=== PATIENT | male | born 1965 | race Caucasian/White ===

== ENCOUNTER → 2019-01-18 08:29 | Outpatient (CLI) | payer BC, SELFPAY ==
--- NOTE | 2019-01-18 10:46 | CA_ITS ---
APPROVED REPORT Community Planning Technician: Dee Dee Reid RVT Laterality: Bilateral Study Quality: Good Indications: TIA Risk Factors Hypertension: Hyperlipidemia Smoking Doppler Spectral Velocity Analysis ECA (R) 67.20/14.10 cm/s ECA (L) 78.10/19.80 cm/s dICA (R) 49.50/17.70 cm/s dICA (L) 59.50/26.00 cm/s Krista (R) 52.40/20.10 cm/s Krista (L) 66.90/27.10 cm/s pICA (R) 54.30/18.60 cm/s pICA (L) 62.00/23.40 cm/s dCCA (R) 73.80/21.80 cm/s dCCA (L) 72.70/21.40 cm/s pCCA (R) 71.90/12.80 cm/s pCCA (L) 82.90/21.90 cm/s Vert (R) 22.00/3.50 cm/s Vert (L) 46.60/13.00 cm/s ICA/CCA 0.74 ICA/CCA 0.92 Conclusion Study suggests less than 20% stenosis of the bilateral internal cartoid arteries. Antegrade flow seen bilateral vertebral arteries. Electronically signed by : Hector Valladares MD 01/24/2019 14:10:51
== END ==
PROVIDERS: PCP Family Medicine; Visit Provider Family Medicine
DX: G45.9 Transient cerebral ischemic attack, unspecified (principal); I10 Essential (primary) hypertension
CPT/HCPCS: 93880

== ENCOUNTER → 2019-02-12 13:27 | Outpatient (CLI) | payer BC, SELFPAY ==
--- NOTE | 2019-02-12 13:31 | CT_ITS ---
PROCEDURE: CT HEAD/BRAIN WO/W CON CLINICAL INDICATION: TIA, HTN Right-sided leg and arm weakness COMPARISON: No exams were available for comparison TECHNIQUE: IV Contrast: 100ML OPITRAY 320 Axial images obtained. All CT scans at the facility use one or more dose reduction, viz: automated exposure control, ma/kV adjustment per patient size (including targeted exams where dose is matched to indication, i.e. head), or iterative reconstruction technique. FINDINGS: No midline shift, mass effect, intracranial hemorrhage, hydrocephalus, or extra-axial fluid collection is evident. No enhancing lesions are evident. The calvarium has an unremarkable appearance. No sinus air-fluid level . There is mild mucosal thickening of the left ethmoid sinus. No mastoid effusion. IMPRESSION: No acute intracranial findings Dictated by: Hector Valladares MD 02/12/2019 16:48 Electronically signed by Hector Valladares MD in [facility] 02/12/2019 16:48
== END ==
PROVIDERS: PCP Family Medicine; Visit Provider Family Medicine
DX: G45.9 Transient cerebral ischemic attack, unspecified (principal); I10 Essential (primary) hypertension
CPT/HCPCS: 70470; Q9967

== ENCOUNTER → 2019-04-10 09:08 | Outpatient (CLI) | payer BC, SELFPAY ==
--- NOTE | 2019-04-10 09:12 | XR_ITS ---
PROCEDURE: XR WRIST LT MIN 3V CLINICAL INDICATION: left wrist fracture fu, IN SPLINT Follow-up fracture COMPARISON: XR WRIST LT MIN 3V from 04/01/2019 XR WRIST LT 2V from 04/01/2019 FINDINGS: There is a cast present. There is and impacted comminuted distal radial fracture with good alignment with mild dorsal angulation of the distal fracture fragment and minimal dorsal displacement of the dorsal fracture by approximately 3 mm. Fracture lines appear somewhat less apparent and may be due to early healing IMPRESSION: Good alignment distal radial fracture Dictated by: Hector Valladares MD 04/10/2019 12:06 Electronically signed by Hector Valladares MD in [facility] 04/10/2019 12:06
[2019-04-10 10:51] LABS: Basophils # 0.1 K/mm3 (0-0.2); Basophils % 1.3 % (0.1-2.0); Eosinophils # 0.2 K/mm3 (0.0-0.4); Eosinophils % 2.2 % (0.1-12.0); Hematocrit 45.1 % (42.0-52.0); Hemoglobin 15.4 g/dL (14.1-18.0); Lymphocytes # 2.3 K/mm3 (0.7-4.5); Lymphocytes % 26.1 % (10-50); Mean Corpuscular HGB Conc 34.3 g/dL (31.8-35.4); Mean Corpuscular Hemoglobin 29.4 pg (27.0-31.2); Mean Corpuscular Volume 85.7 fl (80-94); Mean Platelet Volume 10.8 fl (7.4-10.4); Monocytes # 0.6 K/mm3 (0.1-1.0); Monocytes % 6.7 % (1.7-9.3); Neutrophils # 5.6 K/mm3 (1.8-7.8); Neutrophils % 63.8 % (37.0-80.0); Platelet Count 109 K/mm3 (142-424); Red Blood Count 5.26 M/mm3 (4.60-6.20); Red Cell Distribution Width 13.5 % (11.5-17.5); White Blood Count 8.8 K/mm3 (4.8-10.8)
--- NOTE | 2019-04-10 10:59 | ECG_ITS ---
APPROVED REPORT Exam: Resting ECG HR:80 bpm ECG Measurements Heart Rate 80 AXES VT 134 P 49 QRSd 86 QRS 103 QT 350 T -24 QTc 403 <Conclusion> Normal sinus rhythm Rightward axis T wave abnormality, consider inferior ischemia Abnormal ECG Electronically signed by : Ramirez Garnica, 04/10/2019 20:06:22
[2019-04-10 11:40] LABS: Alanine Aminotransferase 43 U/L (21-72); Albumin Level 3.8 g/dL (3.4-5.0); Albumin/Globulin Ratio 1.2 (1.1-1.8); Alkaline Phosphatase 91 U/L (46-116); Anion Gap 12.1 mEq/L (5-15); Aspartate Amino Transferase 27 U/L (15-37); Bilirubin,Total 0.4 mg/dL (0.2-1.0); Blood Urea Nitrogen 15 mg/dL (7-18); Calcium 9.1 mg/dL (8.5-10.1); Carbon Dioxide 31 mmol/L (21.0-32.0); Chloride 102 mmol/L (98-107); Creatinine,Serum 1.06 mg/dL (0.70-1.30); Estimated Glomerular Filt Rate 73 ml/min (>60); GFR (African American) 88 ML/MIN (>60); Globulin 3.2 gm/dl (1.3-3.2); Glucose 89 mg/dL (74-106); Potassium 4.1 mmoL/L (3.5-5.1); Sodium 141 mmol/L (137-145)
== END ==
PROVIDERS: PCP Family Medicine; Visit Provider Orthopaedic Surgery
DX: Z01.818 Encounter for other preprocedural examination (principal); S52.502A Unspecified fracture of the lower end of left radius, initial encounter for closed fracture; T14.8XXA Other injury of unspecified body region, initial encounter
CPT/HCPCS: 36415; 73110; 80053; 85025; 93005

== ENCOUNTER → 2019-04-24 10:03 | Outpatient (CLI) | payer BC, SELFPAY ==
--- NOTE | 2019-04-24 10:08 | XR_ITS ---
PROCEDURE: XR WRIST LT MIN 3V CLINICAL INDICATION: sp ORIF LT wrist; cast applied COMPARISON: XR WRIST LT MIN 3V from 04/01/2019 XR WRIST LT 2V from 04/01/2019 XR WRIST LT MIN 3V from 04/10/2019 XR WRIST LT 2V from 04/11/2019 FINDINGS: A volar bone plate is present stabilizing the distal radial fracture with good alignment. There is a cast present. Avulsion fracture once again noted involving the tip the ulnar styloid. There are degenerative changes of the 1st metacarpal-carpal joint. IMPRESSION: No change good alignment status post ORIF distal radial fracture Dictated by: Hector Valladares MD 04/24/2019 11:11 Electronically signed by Hector Valladares MD in [place] 04/24/2019 11:11
== END ==
PROVIDERS: PCP Family Medicine; Visit Provider Orthopaedic Surgery
DX: Z48.89 Encounter for other specified surgical aftercare (principal); S52.612D Displaced fracture of left ulna styloid process, subsequent encounter for closed fracture with routine healing; S52.502D Unspecified fracture of the lower end of left radius, subsequent encounter for closed fracture with routine healing
CPT/HCPCS: 73110

== ENCOUNTER → 2019-05-08 13:56 | Outpatient (CLI) | payer BC, SELFPAY ==
--- NOTE | 2019-05-08 13:58 | XR_ITS ---
PROCEDURE: XR WRIST LT MIN 3V CLINICAL INDICATION: sp ORIF lt wrist, dos 04/11/19; after cast removal COMPARISON: XR WRIST LT 2V from 04/01/2019 XR WRIST LT MIN 3V from 04/10/2019 XR WRIST LT 2V from 04/11/2019 XR WRIST LT MIN 3V from 04/24/2019 FINDINGS: Status post cast removal. Volar bone plate remains in place with good alignment stabilizing the distal radial fracture. Fracture line is still visible less apparent. Avulsion fracture of the ulnar styloid once again noted. There are mild degenerative changes at the scapho trapezium joint IMPRESSION: Good alignment status post ORIF distal radial fracture Dictated by: Hector Valladares MD 05/08/2019 15:07 Electronically signed by Hector Valladares MD in [place] 05/08/2019 15:07
== END ==
PROVIDERS: PCP Family Medicine; Visit Provider Orthopaedic Surgery
DX: Z48.89 Encounter for other specified surgical aftercare (principal); S52.502D Unspecified fracture of the lower end of left radius, subsequent encounter for closed fracture with routine healing; S52.613D Displaced fracture of unspecified ulna styloid process, subsequent encounter for closed fracture with routine healing
CPT/HCPCS: 73110

== ENCOUNTER → 2019-06-05 13:26 | Outpatient (CLI) | payer BC, SELFPAY ==
--- NOTE | 2019-06-05 13:28 | XR_ITS ---
PROCEDURE: XR WRIST LT MIN 3V CLINICAL INDICATION: sp ORIF LT wrist, dos 04/11/2019 Follow-up fracture/ORIF COMPARISON: XR WRIST LT MIN 3V from 04/10/2019 XR WRIST LT 2V from 04/11/2019 XR WRIST LT MIN 3V from 04/24/2019 XR WRIST LT MIN 3V from 05/08/2019 FINDINGS: Bone plate remains in place along the volar aspect of the distal radius with good alignment of the healing distal radial fracture. Avulsed ulnar styloid process fracture once again noted. 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 IMPRESSION: Good alignment status post ORIF distal radial fracture Dictated by: Hector Valladares MD 06/05/2019 14:09 Electronically signed by Hector Valladares MD in [place] 06/05/2019 14:09
== END ==
PROVIDERS: PCP Family Medicine; Visit Provider Orthopaedic Surgery
DX: S52.502D Unspecified fracture of the lower end of left radius, subsequent encounter for closed fracture with routine healing (principal); Z09 Encounter for follow-up examination after completed treatment for conditions other than malignant neoplasm
CPT/HCPCS: 73110

== ENCOUNTER → 2019-06-18 12:12 | Outpatient (POV) | payer BC, SELFPAY | PROVIDERS: PCP Family Medicine; Visit Provider Specialist | DX: M25.532 Pain in left wrist (principal); R20.2 Paresthesia of skin | CPT/HCPCS: 95886; 95908 ==

== ENCOUNTER 2019-07-12 08:00 | Outpatient (RCR) | payer BC, SELFPAY ==
--- NOTE | 2019-06-14 08:41 | HMH.PTOPEV ---
PT Outpatient Evaluation Rehab PT Outpatient Evaluation Start: 06/14/19 08:31 Freq: Status: Active Protocol: Document 06/14/19 08:31 MARITAGIA (Rec: 06/14/19 08:41 МАРИНАBRENDA [id number]) Electronically Signed By Cody Newberry PT 06/14/19 08:31 Outpatient Therapy Subjective History Subjective History This is the initial PT evaluation for Tom Yeboah. Pt is a 54 y/o male referred to PT s/p L wrist ORIF. Pt reports he fell off of a ladder on 04/03/19. Pt reports he was trying to fix a flap on the roof and lost his balance landing on outstretched hand. Pt reprots he had surgical fixation 04/11/19 w/ 1 plate and 12 screws. Chief Complaint Stiff,Weakness Symptom Type Ache Symptoms Relieved By Rest/Positioning,Ice Symptoms Aggravated By Physical Activity,Twisting, Lifting Prior Functional Limitations None Current Functional Limitations Lifting,Recreation Activity Symptom Description Intermittent Level of pain today (0-10) 0 Pain scale - at its best (0-10) 0 Pain scale - at its worst (0-10) 4 Wrist/Hand Eval Flexibility Deficits Wrist Extensors Muscle Length (R) Mild Tightness,(L) Moderate Tightness Wrist Flexors Muscle Length (R) Mild Tightness,(L) Moderate Tightness Supinator Muscle Length (L) Moderate Tightness Pronator Muscle Length (L) Moderate Tightness Wrist Range of Motion Left Forearm Supination Active Range of 40 Motion (degrees) Right Forearm Supination Active Range of 90 Motion (degrees) Bilateral Wrist Extension Active Range of Motion ( 40 degrees) Wrist Flexion Active Range of Motion ( 40 degrees) Circulation Tender/Pinch Strength Left Circulation Tender Strength Measurement (lbs) 25 Right Circulation Tender Strength Measurement (lbs) 95 Outpatient Therapy Assessment Impairments Problems/Impairmments Impaired Range of Motion, Impaired Strength,Impaired Lifting,Impaired Recreational Activities,Subjective C/O Pain ,Impaired Self Care/Self Management Prognosis Rehab Potential Fair Clinical Impression Consistent with Diagnosis Yes Short Term Goals Number of Weeks 2 Increase Range of Motion Yes: AROM sup 6
== END 2019-07-12 08:05 | disposition home or self-care (01) ==
LOC: PT 08:00
PROVIDERS: PCP Family Medicine; Visit Provider Orthopaedic Surgery
DX: S52.572D Other intraarticular fracture of lower end of left radius, subsequent encounter for closed fracture with routine healing (principal); S52.612D Displaced fracture of left ulna styloid process, subsequent encounter for closed fracture with routine healing
CPT/HCPCS: 97110; 97140; 97163; 97164

== ENCOUNTER → 2019-07-17 14:33 | Outpatient (CLI) | payer BC, SELFPAY ==
--- NOTE | 2019-07-17 14:37 | XR_ITS ---
PROCEDURE: XR WRIST LT MIN 3V CLINICAL INDICATION: sp ORIF LT wrist, dos 04/11/2019 Follow-up fracture/ORIF COMPARISON: XR WRIST LT 2V from 04/11/2019 XR WRIST LT MIN 3V from 04/24/2019 XR WRIST LT MIN 3V from 05/08/2019 XR WRIST LT MIN 3V from 06/05/2019 FINDINGS: There is an anterior bone plate at the distal radius with good alignment of the fracture fragments. Avulsion fracture once again noted at the ulnar styloid. Osteoarthritic changes are present at the scapho trapezium joint with subarticular cystic changes at the distal aspect of the scaphoid which have developed since the previous exam with cortical irregularity of the articular surface of the scapho trapezium joint. IMPRESSION: 1. Good alignment status post ORIF distal radius. 2. 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
== END ==
PROVIDERS: PCP Family Medicine; Visit Provider Orthopaedic Surgery
DX: Z09 Encounter for follow-up examination after completed treatment for conditions other than malignant neoplasm (principal); S52.612D Displaced fracture of left ulna styloid process, subsequent encounter for closed fracture with routine healing
CPT/HCPCS: 73110

== ENCOUNTER 2020-07-12 16:46 | Emergency (ER) | payer BC, SELFPAY ==
--- NOTE | 2020-07-12 16:49 | XR_ITS ---
PROCEDURE INFORMATION: Exam: XR Left Foot Exam date and time: 07/12/2020 4:49 PM Age: 55 years old Clinical indication: Injury or trauma; Fall; Sprain or strain; Injury date: 07/12/20; Patient HX: PT fell from stool and is having pain in left lateral side of foot TECHNIQUE: Imaging protocol: XR Left foot. Views: 3 or more views. COMPARISON: No relevant prior studies available. FINDINGS: Bones/joints: Small plantar calcaneal enthesophyte. Mild degenerative changes of the 1st MTP, manifest by mild joint space narrowing minimal osteophyte formation. No acute fracture or dislocation. Soft tissues: Normal. IMPRESSION: No acute fracture or dislocation.
[2020-07-12 17:59] VITALS: BP 146/96; PULSE 81; RESP 17; TEMP 37.1; O2SAT 98; BMI 27.2
--- NOTE | 2020-07-12 18:20 | HMH.EDUTC ---
[facility] [place] Disposition Clinical Impression: Foot sprain Qualifiers: Encounter type: initial encounter Laterality: left Qualified Code(s): S93.602A - Unspecified sprain of left foot, initial encounter Disposition: Home, Self-Care Condition on Discharge: Good Instructions: How to Use Crutches, How To Perform RICE (Rest, Ice, Compress, Elevate), DI for Foot Sprain Additional Instructions: *weight bearing as tolerated *RICE, Rest the extremity, Ice 15-20 minutes 3-4 times daily, Compress- wear the juan jose wrap as discussed as much as possible to help reduce swelling and pain, Elevate the extremity when at rest *Juan Jose wrap is for support and help control swelling, use it except in the shower. Be sure that is not to tight but not to loose either *Elevate when resting *Ibuprofen every 6-8 hours as needed for pain an inflammation. If need something more can take Tylenol in between doses of Ibuprofen to help Immediately follow up with your family doctor for new or worsening of symptoms, or no noticeable improvement over the next 3-5 days Follow up with your Family Doctor if no improvement or any worsening of symptoms Return if needed Straight to ER if any life threatening symptoms Referrals: Ramirez Lua MD [Primary Care Provider] - As needed Time of Disposition: 18:27 Medical Decision Making - Larry Inquiry Pt receiving controlled substance: No Larry was queried for this patient: No Vital Signs: 07/12/20 17:59 Temperature 98.7 F Temperature Source Oral Pulse Rate [Left] 81 Respiratory Rate 17 Blood Pressure [Right Arm] 146/96 H Blood Pressure Mean [Right Arm] 112 02 Sat by Pulse Oximetry 98 - Radiology Data #1 Image(s): Foot/Toes Image Reviewed: Yes I have reviewed radiologist's interpretation IMPRESSION: No acute fracture or dislocation [facility] [place] HPI - General Stated complaint: AO 07/12 1200 fell injured L foot Time Seen by Provider: 07/12/20 18:21 Mode of Arrival: Ambulatory Source of Information: Patient Limitations: No Limitations Description of Symptoms (Recalled from Triage Doc. by RN): pt states he stepped down off a jose and hurt his L ankle and foot. HEENT Symptoms (Recalled from RN notes): No Resp Symptoms (Recalled from RN notes): No Skin Symptoms (Recalled from RN notes): No MS Symptoms (Recalled from RN notes): Yes (L ankle pain) Functional Status (Recalled from RN notes): na - History of Present Illness Provider Complaint: Patient states that he was standing on stool earlier today when he slipped off the stool and landed on his left foot and rolled it State that ever since he has been having worsening of pain in the side of his left foot and was worried he may have broken something and wanted to get it checked - Related Data Home Medications Medication Instructions Recorded Confirmed alprazolam 0.5 mg tablet 0.5 mg PO DAILY 04/03/19 07/17/19 aspirin 81 mg tablet,delayed 81 mg PO DAILY 04/03/19 07/17/19 release atorvastatin 10 mg tablet 10 mg PO DAILY 04/03/19 07/17/19 citalopram 10 mg tablet 10 mg PO DAILY 04/03/19 07/17/19 lisinopril 10 1 tab PO DAILY 04/03/19 07/17/19 mg-hydrochlorothiazide 12.5 mg tablet pantoprazole 40 mg tablet,delayed 40 mg PO DAILY 04/03/19 07/17/19 release Acetaminophen 1,000 mg PO TID PRN 04/11/19 07/17/19 Ibuprofen [Ibuprofen 600mg 600 mg PO Q6H 04/11/19 07/17/19 Tablet] Allergies Allergy/AdvReac Type Severity Reaction Status Date / Time No Known Allergies Allergy Verified 07/12/20 18:02 - Worker's Comp Is this a Worker's Comp case?: No [facility] History - Hepatitis A Screen Drug use history?: No High risk sexual behaviors?: No History of sexually transmitted infection?: No Currently employed?: No Childcare worker?: No Do you have indoor plumbing?: Yes Do you have electricity?: Yes Attestation statement:: This patient has been screened for Hepatitis A risk factors. I have reviewed the patient's past medical history: Yes M
[2020-07-12 18:41] VITALS: BP 142/86; PULSE 85; RESP 16; TEMP 36.6
== END 2020-07-12 18:43 | disposition home or self-care (01) ==
PROVIDERS: Emergency Provider Nurse Practitioner; PCP Family Medicine
DX: S93.602A Unspecified sprain of left foot, initial encounter (principal); X50.1XXA Overexertion from prolonged static or awkward postures, initial encounter; Y92.019 Unspecified place in single-family (private) house as the place of occurrence of the external cause; I10 Essential (primary) hypertension; E78.5 Hyperlipidemia, unspecified; K21.9 Gastro-esophageal reflux disease without esophagitis; F41.9 Anxiety disorder, unspecified
CPT/HCPCS: 73630; 99202; G0463

== ENCOUNTER → 2020-08-07 09:30 | Outpatient (CLI) | payer BC, SELFPAY | PROVIDERS: PCP Nurse Practitioner Family; Visit Provider Nurse Practitioner Family | DX: Z20.822 Contact with and (suspected) exposure to COVID-19 (principal) | CPT/HCPCS: U0003 ==

== ENCOUNTER → 2021-01-18 12:07 | Outpatient (CLI) | payer BC, SELFPAY | PROVIDERS: PCP Family Medicine; Visit Provider Nurse Practitioner Family | DX: Z20.822 Contact with and (suspected) exposure to COVID-19 (principal) | CPT/HCPCS: C9803; U0003; U0005 ==

== ENCOUNTER → 2021-03-24 17:37 | Outpatient (CLI) | payer BC, SELFPAY | PROVIDERS: PCP Family Medicine; Visit Provider Nurse Practitioner | DX: Z20.822 Contact with and (suspected) exposure to COVID-19 (principal) | CPT/HCPCS: C9803; U0003; U0005 ==

== ENCOUNTER → 2021-04-07 12:25 | Outpatient (CLI) | payer BC, SELFPAY ==
[2021-04-08 08:20] LABS: Covid-19 Nasal PCR Sendout Lex POSITIVE
== END ==
PROVIDERS: Visit Provider Nurse Practitioner
DX: U07.1 COVID-19 (principal)
CPT/HCPCS: C9803; U0004; U0005

== ENCOUNTER 2021-04-17 12:18 | Emergency (ER) | payer BC, SELFPAY ==
[2021-04-17 12:55] VITALS: BP 141/96; PULSE 73; RESP 21; TEMP 37.1; O2SAT 99; BMI 27.2
--- NOTE | 2021-04-17 13:29 | HMH.EDUTC ---
[facility] [place] Clinical Impression: URI (upper respiratory infection) Qualifiers: URI type: unspecified URI Qualified Code(s): J06.9 - Acute upper respiratory infection, unspecified Disposition: Home, Self-Care Condition on Discharge: Good Instructions: Sore Throat, DI for Nasal Congestion Additional Instructions: *Monitor Temp, Over the counter Motrin or Tylenol as directed/as needed Tylenol every 4 hours and Motrin every 6 hours (as long as your family doctor has told you that you can take it) for fever or pain. and straight to ER if unable to lower temp less than 101.0 after medication given *Warm salt water gargles may help to soothe the throat *Throat Lozenges *Warm fluids like tea with honey may help to soothe the throat *Sleep elevated *Humidifier/Vaporizer Follow up IMMEDIATELY for new or worsening symptoms or no Noticeable improvement over the next 48-72 hours. 911 for difficulty breathing or swallowing Prescriptions: Amoxicillin/Potassium Clav [Augmentin 875-125 Tablet] 1 tab PO Q12H 7 Days #14 tab Transmission Status: Pending to [facility] methylPREDNISolone [Medrol 4mg tab] 4 mg PO DIRECTED #21 tab Transmission Status: Pending to [facility] Referrals: Ramirez Lua MD [Primary Care Provider] - As needed Time of Disposition: 13:49 Medical Decision Making - Larry Inquiry Pt receiving controlled substance: No Larry was queried for this patient: No Vital Signs: 04/17/21 12:55 04/17/21 14:01 Temperature 98.7 F 98.7 F Temperature Source Oral Pulse Rate 73 Pulse Rate [Right Brachial] 73 Respiratory Rate 21 21 Blood Pressure 141/96 H Blood Pressure [Right Arm] 141/96 H Blood Pressure Mean [Right Arm] 111 Blood Pressure Source [Right Arm] Automatic Cuff Blood Pressure Position [Right Arm] Sitting 02 Sat by Pulse Oximetry 99 Oxygen Delivery Method Room Air Orders (Tests/Meds): ED MEDICATIONS Discontinued Medications Generic Name Dose Route Start Last Admin Trade Name Freq PRN Reason Stop Dose Admin Ceftriaxone Sodium 1 gm 04/17/21 13:40 04/17/21 14:00 Ceftriaxone 1gm Vial IM 04/17/21 13:41 1 gm ONCE ONE Administration Lidocaine HCl 0 ml 04/17/21 13:40 04/17/21 14:00 Lidocaine 1% 5ml Pf Vial IM 04/17/21 13:41 2 ml ONCE ONE Administration Methylprednisolone Sodium Succinate 125 mg 04/17/21 13:40 04/17/21 14:00 Methylprednisolone Sod Succ 125mg Vial IM 04/17/21 13:41 125 mg ONCE ONE Administration [facility] [place] - General Stated complaint: congestion Time Seen by Provider: 04/17/21 13:29 Mode of Arrival: Ambulatory Source of Information: Patient Limitations: No Limitations Description of Symptoms (Recalled from Triage Doc. by RN): PATIENT C/O CONGESTION. RECENTLY HAD COVID ON 04/07/21 HEENT Symptoms (Recalled from RN notes): Yes Resp Symptoms (Recalled from RN notes): No Skin Symptoms (Recalled from RN notes): No MS Symptoms (Recalled from RN notes): No Functional Status (Recalled from RN notes): WNL - History of Present Illness Provider Complaint: Patient states that he had COVID a few weeks ago and now he is having scratchy throat and nasal congestion States that he came in to see if he could get a shot to help him - Related Data Home Medications Medication Instructions Recorded Confirmed alprazolam 0.5 mg tablet 0.5 mg PO DAILY 04/03/19 07/17/19 aspirin 81 mg tablet,delayed 81 mg PO DAILY 04/03/19 07/17/19 release atorvastatin 10 mg tablet 10 mg PO DAILY 04/03/19 07/17/19 citalopram 10 mg tablet 10 mg PO DAILY 04/03/19 07/17/19 lisinopril 10 1 tab PO DAILY 04/03/19 07/17/19 mg-hydrochlorothiazide 12.5 mg tablet pantoprazole 40 mg tablet,delayed 40 mg PO DAILY 04/03/19 07/17/19 release Acetaminophen 1,000 mg PO TID PRN 04/11/19 07/17/19 Ibuprofen [Ibuprofen 600mg 600 mg PO Q6H 04/11/19 07/17/19 Tablet] Previous Rx's Medication Instructions Recorded Amoxicillin/Potassium Cla
[2021-04-17 14:01] VITALS: BP 141/96; PULSE 73; RESP 21; TEMP 37.1; O2SAT 99
== END 2021-04-17 14:07 | disposition home or self-care (01) ==
PROVIDERS: Emergency Provider Nurse Practitioner; PCP Family Medicine
DX: J06.9 Acute upper respiratory infection, unspecified (principal); I10 Essential (primary) hypertension
CPT/HCPCS: 96372; 99202; 99212; 99213; G0463; J0696

== ENCOUNTER 2021-08-12 12:48 | Emergency (ER) | payer BC, SELFPAY ==
[2021-08-12 12:50] VITALS: BP 117/80; PULSE 91; RESP 19; TEMP 37.2; O2SAT 98; BMI 24.8
--- NOTE | 2021-08-12 13:21 | HMH.EDUTC ---
[facility] [place] Disposition Clinical Impression: Otitis media Qualifiers: Otitis media type: unspecified Laterality: right Qualified Code(s): H66.91 - Otitis media, unspecified, right ear Disposition: Home, Self-Care Condition on Discharge: Good Instructions: Ear Infections (Alternative Therapy), Sinusitis, DI for Sinusitis Additional Instructions: *Monitor Temp, Over the counter Motrin or Tylenol as directed/as needed Tylenol every 4 hours and Motrin every 6 hours (as long as your family doctor has told you that you can take it) for fever or pain. and straight to ER if unable to lower temp less than 101.0 after medication given *Warm salt water gargles may help to soothe the throat *Throat Lozenges *Warm fluids like tea with honey may help to soothe the throat *Sleep elevated *Humidifier/Vaporizer Follow up IMMEDIATELY for new or worsening symptoms or no Noticeable improvement over the next 48-72 hours. 911 for difficulty breathing or swallowing You were tested for today for COVID19 your test result should be back in the next 24-48 hours, you may check your results on the [facility] My Health Portal Make sure to take your Vitamins Vit. C Vit D and Zinc if you can take them Prescriptions: methylPREDNISolone [Medrol 4mg tab] 4 mg PO DIRECTED #21 tab Transmission Status: Pending to [facility] Cefdinir [Omnicef 300mg Capsule] 300 mg PO BID #20 cap Transmission Status: Pending to [facility] Referrals: Jane Thomas MD [Primary Care Provider] - As needed Time of Disposition: 13:42 Medical Decision Making - Larry Inquiry Pt receiving controlled substance: No Larry was queried for this patient: No Vital Signs: 08/12/21 12:50 Temperature 98.9 F Temperature Source Oral Pulse Rate [Right Brachial] 91 H Respiratory Rate 19 Blood Pressure [Right Arm] 117/80 Blood Pressure Mean [Right Arm] 92 Blood Pressure Source [Right Arm] Automatic Cuff Blood Pressure Position [Right Arm] Sitting 02 Sat by Pulse Oximetry 98 Oxygen Delivery Method Room Air - Lab Data Lab results reviewed: Yes: I reviewed the patient's lab results. Medical Decision Narrative: patient states that he has taken medrol in the past [facility] [place] HPI - General Stated complaint: head/chest congestion Time Seen by Provider: 08/12/21 13:21 Mode of Arrival: Ambulatory Source of Information: Patient Limitations: No Limitations Description of Symptoms (Recalled from Triage Doc. by RN): PATIENT C/O EAR PAIN, CHEST AND CONGESTION HEENT Symptoms (Recalled from RN notes): No Resp Symptoms (Recalled from RN notes): No Skin Symptoms (Recalled from RN notes): No MS Symptoms (Recalled from RN notes): No Functional Status (Recalled from RN notes): WNL - History of Present Illness Provider Complaint: Patient states that he has been having pain and pressure in his right ear and feels like he cannot hear anything States that he has also been having sinus pain and pressure States that he does not feel well so he came in to get checked out - Related Data Home Medications Medication Instructions Recorded Confirmed alprazolam 0.5 mg tablet 0.5 mg PO DAILY 04/03/19 07/17/19 aspirin 81 mg tablet,delayed 81 mg PO DAILY 04/03/19 07/17/19 release atorvastatin 10 mg tablet 10 mg PO DAILY 04/03/19 07/17/19 citalopram 10 mg tablet 10 mg PO DAILY 04/03/19 07/17/19 lisinopril 10 1 tab PO DAILY 04/03/19 07/17/19 mg-hydrochlorothiazide 12.5 mg tablet pantoprazole 40 mg tablet,delayed 40 mg PO DAILY 04/03/19 07/17/19 release Acetaminophen 1,000 mg PO TID PRN 04/11/19 07/17/19 Ibuprofen [Ibuprofen 600mg 600 mg PO Q6H 04/11/19 07/17/19 Tablet] Previous Rx's Medication Instructions Recorded Amoxicillin/Potassium Clav 1 tab PO Q12H 7 Days #14 tab 04/17/21 [Augmentin 875-125 Tablet] methylPREDNISolone [Medrol 4mg 4 mg PO DIRECTED #21 tab 04/17/21 tab] Cefdinir [Omnicef 300mg Capsule] 300 mg PO BID #20 cap 08/12/21 methylPREDNI
[2021-08-12 13:43] VITALS: BP 117/80; PULSE 91; RESP 19; TEMP 37.2; O2SAT 98
== END 2021-08-12 13:48 | disposition home or self-care (01) ==
PROVIDERS: Emergency Provider Nurse Practitioner; PCP Family Medicine
DX: H66.91 Otitis media, unspecified, right ear (principal)
CPT/HCPCS: 99212; G0463

== ENCOUNTER 2021-08-22 08:00 | Emergency (ER) | payer BC, SELFPAY ==
[2021-08-22 08:05] VITALS: BP 124/89; PULSE 81; RESP 16; TEMP 37.1; O2SAT 98; BMI 26.1
[2021-08-22 08:42] LABS: Strep Scrn Group A (Rapid) Negative (Negative)
[2021-08-22 09:12] VITALS: BP 124/89; PULSE 81; RESP 16; TEMP 37.1; O2SAT 98
--- NOTE | 2021-08-22 09:21 | HMH.EDUTC ---
[facility] [place] Clinical Impression: Strep sore throat Disposition: Home, Self-Care Condition on Discharge: Good Instructions: DI for Strep Throat Additional Instructions: Strep throat * start taking antibiotic immediately and make sure that you take it for the FULL length of time although you should start to feel better in 24-48 hours *change toothbrush and toothpaste 24-48 hours after starting to take antibiotics so you do not reinfect yourself Monitor Temp. Tylenol and/or Ibuprofen as needed. ER if fever is no less than 101 despite alternating Tylenol and Ibuprofen * Encourage fluids, water, Gatorade, powerade, pedialyte if /toddler/or child *Cold fluids, popsicles and ice cream may feel good on his throat Prescriptions: Azithromycin [Zithromax 250mg tab] 250 mg PO DIRECTED #6 tab Transmission Status: Pending to [facility] Referrals: Jane Thomas MD [Primary Care Provider] - Time of Disposition: 09: Medical Decision Making - Larry Inquiry Pt receiving controlled substance: No Vital Signs: 08/22/21 08:05 08/22/21 09:12 Temperature 98.8 F 98.8 F Temperature Source Oral Pulse Rate 81 Pulse Rate [Right Brachial] 81 Respiratory Rate 16 16 Blood Pressure 124/89 Blood Pressure [Right Arm] 124/89 Blood Pressure Mean [Right Arm] 100 Blood Pressure Source [Right Arm] Automatic Cuff Blood Pressure Position [Right Arm] Sitting 02 Sat by Pulse Oximetry 98 Oxygen Delivery Method Room Air - Lab Data Lab Results 08/22/21 08:16: Group A Strep Rapid Negative Orders (Tests/Meds): ORDERS Category Date Time Status Strep Screen Confirmation Stat Micro 08/22/21 08:16 Received [facility] [place] HPI - General Chief complaint: Urgent Treatment Center Stated complaint: sore throat Time Seen by Provider: 08/22/21 09:08 Mode of Arrival: Ambulatory Source of Information: Patient Limitations: No Limitations Description of Symptoms (Recalled from Triage Doc. by RN): PATIENT C/O SORE THROAT X 2 DAYS HEENT Symptoms (Recalled from RN notes): Yes Resp Symptoms (Recalled from RN notes): No Skin Symptoms (Recalled from RN notes): No MS Symptoms (Recalled from RN notes): No Functional Status (Recalled from RN notes): WNL - Related Data Home Medications Medication Instructions Recorded Confirmed alprazolam 0.5 mg tablet 0.5 mg PO DAILY 04/03/19 07/17/19 aspirin 81 mg tablet,delayed 81 mg PO DAILY 04/03/19 07/17/19 release atorvastatin 10 mg tablet 10 mg PO DAILY 04/03/19 07/17/19 citalopram 10 mg tablet 10 mg PO DAILY 04/03/19 07/17/19 lisinopril 10 1 tab PO DAILY 04/03/19 07/17/19 mg-hydrochlorothiazide 12.5 mg tablet pantoprazole 40 mg tablet,delayed 40 mg PO DAILY 04/03/19 07/17/19 release Acetaminophen 1,000 mg PO TID PRN 04/11/19 07/17/19 Ibuprofen [Ibuprofen 600mg 600 mg PO Q6H 04/11/19 07/17/19 Tablet] Previous Rx's Medication Instructions Recorded Amoxicillin/Potassium Clav 1 tab PO Q12H 7 Days #14 tab 04/17/21 [Augmentin 875-125 Tablet] methylPREDNISolone [Medrol 4mg 4 mg PO DIRECTED #21 tab 04/17/21 tab] Cefdinir [Omnicef 300mg Capsule] 300 mg PO BID #20 cap 08/12/21 methylPREDNISolone [Medrol 4mg 4 mg PO DIRECTED #21 tab 08/12/21 tab] Azithromycin [Zithromax 250mg 250 mg PO DIRECTED #6 tab 08/22/21 tab] Allergies Allergy/AdvReac Type Severity Reaction Status Date / Time No Known Allergies Allergy Verified 07/12/20 18:02 - Worker's Comp Is this a Worker's Comp case?: No [facility] History - Hepatitis A Screen Attestation statement:: This patient has been screened for Hepatitis A risk factors. I have reviewed the patient's past medical history: Yes Medical History: Reports:: Anxiety, Gastroesophageal Reflux Disease(GERD), Hypertension, Transient Ischemic Attacks (TIA) Denies:: Cancer, Diabetes Mellitus Type 1, Diabetes Mellitus Type 2, Internal Pacemaker, MRSA, Seizures Other Medical Histo
== END 2021-08-22 09:30 | disposition home or self-care (01) ==
PROVIDERS: Emergency Provider Nurse Practitioner Family; PCP Family Medicine
DX: J02.9 Acute pharyngitis, unspecified (principal); K21.9 Gastro-esophageal reflux disease without esophagitis; I10 Essential (primary) hypertension
CPT/HCPCS: 87430; 99212; G0463

== ENCOUNTER 2022-11-25 14:14 | Emergency (ER) | payer OTHER, SELFPAY ==
[2022-11-25 14:15] VITALS: BP 140/99; PULSE 101; RESP 16; TEMP 36.5; O2SAT 99; BMI 25.1
[2022-11-25 14:30] VITALS: BP 121/75; PULSE 89; O2SAT 98
--- NOTE | 2022-11-25 14:40 | XR_ITS ---
FINAL REPORT CLINICAL HISTORY: pain/swelling FINDINGS: AP, lateral and oblique views of the right hand were obtained. There is no prior exam for comparison. There is no acute fracture or dislocation. There is a chronic appearing fracture of the radial side of the base of the proximal phalanx of the right third digit. There is mild multijoint degenerative disease. No acute soft tissue abnormality. IMPRESSION: No acute osseous abnormality of the right hand. Multijoint degenerative disease. Authenticated and ERN
--- NOTE | 2022-11-25 14:40 | XR_ITS ---
FINAL REPORT CLINICAL HISTORY: pain/swelling FINDINGS: AP and lateral views of the right wrist were obtained. There is no prior exam for comparison. There is no acute fracture or dislocation. There is mild multijoint degenerative disease, most pronounced at the joint between the scaphoid and distal row of carpal bones. No acute soft tissue abnormality. IMPRESSION: No acute osseous abnormality of the right wrist. Authenticated and ERN
--- NOTE | 2022-11-25 14:40 | XR_ITS ---
FINAL REPORT CLINICAL HISTORY: stubbed 1st and 2nd toes FINDINGS: AP, oblique and lateral views of the right foot were obtained. There is no prior exam for comparison. There is a nondisplaced fracture of the distal phalanx of the right great toe. Fracture line does not extend to the IP joint. No additional acute fracture is visualized. There is degenerative joint disease at the first MTP joint. There is soft tissue edema of the great toe. IMPRESSION: Nondisplaced fracture of the distal phalanx of the right great toe. Authenticated and ERN
--- NOTE | 2022-11-25 14:42 | HMH.EDGENADL ---
Discharge Plan Disposition Patient Disposition: Xfer Short-Term Hosp Condition: Good Prescriptions Prescriptions: No Action citalopram 10 mg tablet 10 mg PO DAILY pantoprazole 40 mg tablet,delayed release (DR/EC) 40 mg PO DAILY atorvastatin 10 mg tablet 10 mg PO DAILY alprazolam 0.5 mg tablet 0.5 mg PO DAILY aspirin [Adult Aspirin Regimen] 81 mg tablet,delayed release (DR/EC) 81 mg PO DAILY lisinopril-hydrochlorothiazide 10-12.5 mg tablet 1 tab PO DAILY ibuprofen 600 MG tablet 600 mg PO Q6H acetaminophen 500 MG tablet 1,000 mg PO TID PRN (Reason: PAIN) methylprednisolone 4 MG tablet 4 mg PO DIRECTED Qty: 21 0RF Rx Instructions: Take as directed on package instructions cefdinir 300 MG capsule 300 mg PO BID Qty: 20 0RF azithromycin 250 MG tablet 250 mg PO DIRECTED Qty: 6 0RF Rx Instructions: Take two (2) tablets on day #1, then one (1) tablet day #2 thru #5 methylprednisolone 4 MG tablet 4 mg PO DIRECTED Qty: 21 0RF Rx Instructions: Take as directed on package instructions amoxicillin-pot clavulanate 1 EACH tablet 1 tab PO Q12H 7 Days Qty: 14 0RF Referrals Follow up/Referrals: Elsa Ballesteros [Primary Care Provider] - See instructions Activity Restrictions/Add. Instructions Additional Instructions/Restrictions: Please proceed directly to the [facility] Emergency Department. [address] [place] [address] Clinical Impressions Clinical Impression: Open fracture of great toe of right foot Stand Alone Forms Stand Alone Forms: Transfer Record - ED Discharge ED Provider: Jessica Perez General Adult HPI General Chief complaint: Wound/Laceration Stated complaint: cut big toe possible broken wrist ao 11/24/2022 Time Seen by Provider: 11/25/22 14:34 Mode of Arrival: Ambulatory Source of Information: Patient Limitations: No Limitations Description of Symptoms (Recalled from ER Triage Doc. by RN): Patient states he fell down about 6-7 stairs yesterday causing a laceration to his right great toe and complaints of right wrist pain. Denies LOC. History of Present Illness HPI narrative: This patient is a 57-year-old male with a history of left wrist fracture as well as a bleeding disorder presenting to the emergency department for evaluation with concern for right big toe injury and right wrist pain. 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 He was walking down the stairs when he reached up to get something and lost his balance. He was approximately 6 steps high. He denies actually falling down the stairs, but he reports he swung around after catching himself, kicking his foot in open shoes on a metal piece. He also complains of right wrist pain as a result of the fall. He also denies any head injury, loss of consciousness, neck pain, back pain, chest pain, abdominal pain, or other concern. His last tetanus shot was approximately 1 year ago. He is not on any anticoagulation. Related Data Home Medications Medication Instructions Recorded Confirmed alprazolam 0.5 mg tablet 0.5 mg PO DAILY Anxiety 04/03/19 07/17/19 aspirin 81 mg tablet,delayed 81 mg PO DAILY HEART HEALTHY 04/03/19 07/17/19 release (Adult Aspirin Regimen) atorvastatin 10 mg tablet 10 mg PO DAILY Cholesterol 04/03/19 07/17/19 citalopram 10 mg tablet 10 mg PO DAILY Anxiety 04/03/19 07/17/19 lisinopril 10 1 tab PO DAILY BP 04/03/19 07/17/19 mg-hydrochlorothiazide 12.5 mg tablet pantoprazole 40 mg tablet,delayed 40 mg PO DAILY GERD 04/03/19 07/17/19 release acetaminophen 500 mg tablet 1,000 mg PO TID PRN PAIN 04/11/19 07/17/19 ibuprofen 600 mg tablet 600 mg PO Q6H Pain 04/11/19 07/17/19 Previous Rx's Medication Instructions Recorded amoxicillin 875 mg-potassium 1 tab PO Q12H 7 days #14 tabs 04/17/21 clavulanate 125 mg tablet methylprednisolo
[2022-11-25 15:00] VITALS: BP 108/79; PULSE 99; O2SAT 99
--- NOTE | 2022-11-25 15:08 | PC.NURSE ---
Notified RAD of XRAY of foot
--- NOTE | 2022-11-25 15:24 | PC.NURSE ---
Dr Perez talking to transfer center to transfer patient .
--- NOTE | 2022-11-25 15:26 | PC.NURSE ---
[facility] to call back about patient.
--- NOTE | 2022-11-25 15:31 | PC.NURSE ---
Dr. Perez speaking with Dr. Gallardo at
--- NOTE | 2022-11-25 15:34 | PC.NURSE ---
Pt accepted to [facility] by Dr. Gallardo
--- NOTE | 2022-11-25 16:09 | PC.NURSE ---
Report called to charge nurse at [facility].
[2022-11-25 16:35] VITALS: BP 118/78; PULSE 68; RESP 18; TEMP 36.7; O2SAT 98
== END 2022-11-25 16:36 | disposition short-term general hospital (02) ==
PROVIDERS: Emergency Provider Emergency Medicine; PCP Family Medicine
DX: S92.424B Nondisplaced fracture of distal phalanx of right great toe, initial encounter for open fracture (principal); M25.531 Pain in right wrist; W10.8XXA Fall (on) (from) other stairs and steps, initial encounter
CPT/HCPCS: 73100; 73130; 73630; 96374; 99285; J0690

== ENCOUNTER 2023-10-18 09:37 | Outpatient (CLI) | payer OTHER, SELFPAY ==
--- NOTE | 2023-10-18 09:43 | XR_ITS ---
FINAL REPORT CLINICAL HISTORY: lt wrist pain COMPARISON: 06/05/2019 FINDINGS: LEFT WRIST Three views demonstrate no acute fracture or dislocation. There is a sideplate and orthopedic screws anchoring the left radial metaphysis, unchanged since the prior exam of 2019. There is a fracture fragment adjacent to the ulnar styloid, also stable. The visualized joint spaces are normally aligned. Mild hypertrophic change is noted in the radial portion of the wrist. The soft tissues are unremarkable. IMPRESSION: No acute bony abnormality. Mild hypertrophic change in the radial portion of the wrist. Reviewed, Interpreted and Dictated by Eugene Powers MD Transcribed by Nahed Muñoz Authenticated and . [facility]
== END 2023-10-18 23:59 | disposition home or self-care (01) ==
LOC: RAD 09:38
PROVIDERS: PCP Family Medicine; Visit Provider Physician Assistant
DX: M25.532 Pain in left wrist (principal)
CPT/HCPCS: 73110

== ENCOUNTER 2024-01-10 16:00 | Outpatient (RCR) | payer OTHER, SELFPAY | END 2024-01-10 23:59 | disposition home or self-care (01) | LOC: PT 16:00 | PROVIDERS: PCP Family Medicine; Visit Provider Family Medicine | DX: M54.12 Radiculopathy, cervical region (principal) | CPT/HCPCS: 97014; 97110; 97163; G0283 ==